=== PATIENT | male | born 1995 ===

== ENCOUNTER 2023-02-10 13:07 | Emergency (ER) | payer SELFPAY ==
[~2023-02-10] VITALS: Ht 170 cm; Wt 80.0 kg
[2023-02-10 13:10] VITALS: BP 161/80
[2023-02-10] MEDS ORDERED: LIDOCAINE 2% w/EPI 1:100,000 20 ML VIAL ONE (13:22)
--- NOTE | 2023-02-10 13:30 | ED Integumentary General ---
General Chief Complaint: Head/Cervical Problems Stated Complaint: HEAD INJ Nursing Triage Note: ARRIVED VIA AMB WITH COMPLAINTS OF AN AREA ON THE RIGHT SIDE OF HIS HEAD FOR A YEAR BUT IN THE LAST WEEKS HAS BECAME WORSE. Source: patient, winemaker Exam Limitations: no limitations History of Present Illness Date Seen by Provider: Feb 10, 2023 Time Seen by Provider: 13:09 Initial Comments 27-year-old male with no pertinent past medical history coming in due to a growth on the right side of his head. He says its been present for over a year, he tried squeezing/poking it a couple weeks ago, had a little bit of liquid come out, and since then its grown and is much more painful. It hurts at times, mostly when he is touching it. Denies any redness around it, fever, chills, weakness, numbness, or any other concerns. He has not fallen, hit his head, or had any trauma to the area. Allergies and Home Medications Allergies Coded Allergies: No Known Drug Allergies (Unverified , 02/10/23) Patient Home Medication List Home Medication List Reviewed: Yes Clindamycin HCl (Clindamycin HCl) 300 Mg Capsule, 300 MG PO TID Prescribed by: IRVIN RICHEY on 02/10/23 4196 Review of Systems Review of Systems Constitutional: No fever EENTM: no symptoms reported Respiratory: no symptoms reported Cardiovascular: no symptoms reported Gastrointestinal: no symptoms reported Genitourinary: no symptoms reported Musculoskeletal: no symptoms reported Skin: see HPI Psychiatric/Neurological: No Symptoms Reported Endocrine: No Symptoms Reported Past Evkzaue-Lkixoc-Bkvtkw Hx Patient Social History Tobacco Use?: No Substance use?: No Alcohol Use?: No Past Medical History Surgeries: No Physical Exam Vital Signs Vital Signs - First Documented 02/10/23 13:10 Temp 36.6 Pulse 89 Resp 16 B/P (MAP) 161/80 (107) Pulse Ox 100 O2 Delivery Room Air Capillary Refill : Less Than 3 Seconds General Appearance: WD/WN, no apparent distress HEENT: PERRL/EOMI, pharynx normal, other (Cystlike lesion to the right temporal region, well-circumscribed, mobile, slightly painful, difficult to assess for redness because of his hair) Neck: non-tender, full range of motion, supple, normal inspection Cardiovascular: regular rate, rhythm, no edema, no murmur Respiratory: chest non-tender, lungs clear, normal breath sounds, no respi ratory distress, no accessory muscle use Gastrointestinal: normal bowel sounds, non tender, soft; No distended, No guarding, No rebound Extremities: normal range of motion, non-tender, normal inspection, no pedal edema, no calf tenderness, normal capillary refill Neurologic/Psychiatric: no motor/sensory deficits, alert, normal mood/affect Skin: normal color, warm/dry Procedures/Interventions I&D : Site: right lateral scalp Blade Size: 11 Progress The area was cleaned numerous times with chlorhexidine and allowed to dry. A 27-gauge needle was used and lidocaine with epinephrine was infiltrated into the area. 6 cc were used for this. I then performed a single stab incision with the 11 blade and lengthened it somewhat. There was immediate purulent drainage followed by what appeared to be a fatty mass which I left alone. It was loosely closed with 3 rosalio since there was a lipoma there. I would have removed the lipoma, however, we do not have the ability to send anything for pathology here which would be needed. Progress/Results/Core Measures Results/Orders My Orders Orders - IRVIN RICHEY MD Lidocaine 2% W/Epi 1:100,000 (Xylocaine/ (02/10/23 13:22) Wound Culture (02/10/23 13:47) Lidocaine 2% W/Epi 1:100,000 (Xylocaine/ (02/10/23 14:00) Medications Given in ED Current Medications Medications Dose Ordered Sig/Susie Route Start Time Stop Time Status Last Admin Dose Admin Lidocaine/ Epinephrine 20 ml ONCE ONCE INJ 02/10/23 14:00 02/10/23 14:01 DC 02/10/23 14:02 20 ML Vital Signs/I&O 02/10/23 13:10 Temp 36.6 Pulse 89 Resp 16 B/P (MAP) 161/80 (107) Pulse Ox 100 O2 Delivery Room Air Blood Pressure Mean: 107 Progress Progress Note : Progress Note 27-year-old male presenting for a lesion to the right side of his scalp. ABCs were intact and vitals were stable on presentation. Physical exam with what feels like a cyst vs abscess vs lipoma to the right side of his scalp with no obvious overlying cellulitis. I did a [id number] ultrasound showing that it was well-circumscribed, and mixed echogenicity with some fluid. The area was numbed, and a single stab incision with an 11 blade was used after discussing the risk and benefits with the winemaker. It did appear to be an infected lipoma. I removed all of the fluid that was purulent, cultured it, and then closed it loosely with rosalio. I suspect it was a regular lipoma hence why it has slowly been growing over the past year, and when he squeezed and poked it two weeks ago it opened it up for an infection. I discussed since it is a mass, that he will need to have it removed by a surgeon for proper pathology afterwards. I will put him on antibiotics in the meantime and he can follow-up with Dr. Boyd to discuss potential removal. Departure Impression Primary Impression: Lipoma Qualified Codes: D17.0 - Benign lipomatous neoplasm of skin and subcutaneous tissue of head, face and neck Additional Impression: Abscess Disposition: 01 HOME, SELF-CARE Condition: Stable Departure-Patient Inst. Decision time for Depature: 14:00 Referrals: [facility] DO NO,LOCAL PHYSICIAN (PCP) Primary Care Physician Patient Instructions: Abscess Incision and Drainage ED, Lipoma Add. Discharge Instructions: There was some fluid in the mass that did look infected. We will put you on an antibiotic which was sent to [facility] for the next week. Come back next to have the rosalio removed. After that, follow-up with Dr. Boyd to discuss having the mass removed. He is in [place], his number is in this paperwork. Haba algo de lquido en la masa que pareca infectado. Le daremos un antibitico que se envi a [facility] para la prxima semana. Regrese el prximo jueves para que le quiten las grapas. Despus de eso, shree un seguimiento con el Dr. Boyd para hablar sobre la extirpacin de la masa. Est en [place], wang nmero est en renan papeleo. Puede starla ibuprofeno o tylenol segn sea necesaria para el dolor. Scripts Clindamycin HCl (Clindamycin HCl) 300 Mg Capsule 300 MG PO TID for 7 Days, #21 CAP Prov: IRVIN RICHEY MD 02/10/23 Work/School Note: Work Release Form Date Seen in the Emergency Department: Feb 10, 2023 Return to Work: Feb 11, 2023 Restrictions: No Restrictions IRVIN RICHEY MD Feb 10, 2023 13:30
[2023-02-10] MEDS ORDERED: CLIN-144 PO (13:56)
[2023-02-10] MEDS ORDERED: LIDOCAINE 2% w/EPI 1:100,000 20 ML VIAL INJ ONE (14:00)
== END 2023-02-10 14:03 | disposition home or self-care (01) ==
LOC: ER FS 13:11
DX: D17.0 Benign lipomatous neoplasm of skin and subcutaneous tissue of head, face and neck (principal); L02.811 Cutaneous abscess of head [any part, except face]
CPT/HCPCS: 87070; 87205

== ENCOUNTER 2023-02-18 11:18 | Emergency (ER) | payer SELFPAY ==
[~2023-02-18] VITALS: Ht 175.3 cm; Wt 67.0 kg
[~2023-02-18 11:18] MED LIST: CLIN-144 PO
[2023-02-18 11:25] VITALS: BP 132/73
== END 2023-02-18 11:35 | disposition home or self-care (01) ==
LOC: EDUNIT# 11:18 → ER FS 11:19
DX: Z48.02 Encounter for removal of sutures (principal)